=== PATIENT | male | born 1990 | race Caucasian/White ===

== ENCOUNTER 2016-09-30 19:07 | Outpatient (CLI) | payer MEDICARE, MEDICAID | END 2016-09-30 19:08 | disposition EMS.NT | DX: Z03.89 Encounter for observation for other suspected diseases and conditions ruled out (principal) ==

== ENCOUNTER 2016-12-06 23:31 | Emergency (ER) | payer MEDICARE, MEDICAID ==
[2016-12-07 00:19] LABS: BASOPHILS # (AUTO) 0.1 10^3/uL (0.0-0.1); BASOPHILS % (AUTO) 0.7 %; EOSINOPHILS # (AUTO) 0.2 10^3/uL (0.0-0.7); EOSINOPHILS % (AUTO) 2.7 %; HCT - HEMATOCRIT 41.3 % (42.0-52.0); HGB - HEMOGLOBIN 14.4 g/dL (14.0-18.0); LYMPHOCYTES # (AUTO) 3.4 10^3/uL (1.5-3.5); LYMPHOCYTES % (AUTO) 41.1 %; MEAN CORPUSCULAR HGB CONC 34.8 g/dL (32.0-36.0); MEAN CORPUSCULAR VOLUME 83.5 fL (80.0-94.0); MEAN PLATELET VOLUME 6.8 fL (7.4-11.4); MONOCYTES # (AUTO) 0.7 10^3/uL (0.0-1.0); MONOCYTES % (AUTO) 8.2 %; NEUTROPHILS # (AUTO) 3.9 10^3/uL (1.5-6.6); NEUTROPHILS % (AUTO) 47.3 %; RED BLOOD COUNT 4.95 10^6/uL (4.70-6.10); UNCORRECTED WHITE BLOOD COUNT 8.3 x10^3/uL; WHITE BLOOD COUNT 8.3 x10^3/uL (4.8-10.8)
[2016-12-07 00:25] LABS: ALBUMIN/GLOBULIN RATIO 2.3 (1.0-2.2); BILIRUBIN,TOTAL 0.3 mg/dL (0.2-1.0); BUN - BLOOD UREA NITROGEN 12 mg/dL (6-20); CALCIUM 9.2 mg/dL (8.5-10.3); CARBON DIOXIDE - CO2 29 mmol/L (21-32); CHLORIDE 101 mmol/L (101-111); CREATININE 1.1 mg/dL (0.6-1.2); GFR - MDRD 82 (>89); GLUCOSE 85 mg/dL (70-100); LIPASE 28 U/L (22-51); POTASSIUM 3.7 mmol/L (3.5-5.0); SODIUM 138 mmol/L (135-145); TOTAL PROTEIN 6.5 g/dL (6.7-8.2)
--- NOTE | 2016-12-07 00:33 | ED Physician Documentation ---
PD HPI SEIZURE - Stated complaint Stated Complaint: SYNCOPE - Chief complaint Chief Complaint: Neuro - History obtained from History obtained from: Patient, Family - History of Present Illness Timing - onset: Today Witnessed: Witnessed Number of seizures: Lasted minutes (5) Injury during seizure: Fell. No: Head injury, Neck injury, Bit tongue, Shoulder dislocation Pain level max: 0 Pain level now: 0 Associated symptoms: No: Headache, Vision changes, Chest pain, Palpitations, Diaphoresis, Dyspnea, Nausea / vomiting History of seizures: Known seizure disorder Similar symptoms before: Diagnosis (being worked up for seizure vs pseudoseizures.) Recently seen: Not recently seen Review of Systems Constitutional: denies: Fever, Chills Nose: denies: Rhinorrhea / runny nose, Congestion Throat: denies: Sore throat Respiratory: denies: Cough, Hemoptysis GI: denies: Abdominal Pain, Nausea, Vomiting, Diarrhea Skin: denies: Rash Musculoskeletal: denies: Neck pain, Back pain Neurologic: denies: Focal weakness, Numbness, Headache PD PAST MEDICAL HISTORY - Past Medical History Past Medical History: Yes Cardiovascular: None Respiratory: None Neuro: Seizure disorder Endocrine/Autoimmune: None GI: None : None HEENT: None Psych: Bipolar disorder, ADD/ADHD Musculoskeletal: None Derm: None - Past Surgical History Past Surgical History: Yes HEENT: Myringotomy (tubes) - Present Medications Home Medications: Ambulatory Orders Medication Instructions Recorded Confirmed Montelukast [Singulair] 10 mg PO DAILY 07/14/13 12/06/16 Risperidone 1 mg PO DAILY 07/14/13 12/06/16 Guanfacine HCl 1 tab PO DAILY 11/17/15 12/06/16 Pantoprazole [Protonix] 20 mg PO DAILY 11/17/15 12/06/16 Trazodone HCl 100 tab PO DAILY 11/17/15 12/06/16 Albuterol 3 ml IH Q6HR PRN 12/06/15 Fluticasone [Flonase] 2 spray IH Q6HR PRN 12/06/15 Lamotrigine [Lamictal Odt] 200 mg PO BID 12/06/16 12/06/16 - Allergies Allergies/Adverse Reactions: Allergies Allergy/AdvReac Type Severity Reaction Status Date / Time anesthesia AdvReac Nausea Uncoded 12/06/16 23:42 - Social History Does the pt smoke?: Yes Smoking Status: Current every day smoker Does the pt drink ETOH?: Yes Does the pt have substance abuse?: No - Immunizations Immunizations are current?: No Immunizations: No immun - POLST Patient has POLST: No PD ED PE NORMAL - Vitals Vital signs reviewed: Yes - General General: Alert and oriented X 3, No acute distress, Well developed/nourished - HEENT HEENT: Atraumatic, PERRL, Moist mucous membranes - Neck Neck: Supple, no meningeal sign, No bony TTP - Cardiac Cardiac: RRR, Strong equal pulses - Respiratory Respiratory: No respiratory distress, Clear bilaterally - Abdomen Abdomen: Soft, Non tender, Non distended - Back Back: No spinal TTP - Derm Derm: Warm and dry, No rash - Extremities Extremities: No deformity, No tenderness to palpate - Neuro Neuro: Alert and oriented X 3, keno attendant 2-12 intact, No motor deficit, No sensory deficit, Normal speech - Psych Psych: Normal mood, Normal affect Results - Vitals Vitals: Vital Signs - 24 hr 12/06/16 12/07/16 12/07/16 23:38 00:01 00:35 Temperature 36.9 C Heart Rate 61 69 70 Respiratory 20 13 17 Rate Blood Pressure 126/73 126/73 111/61 O2 Saturation 100 100 99 Oxygen O2 Source Room air - Labs Labs: Laboratory Tests 12/06/16 12/06/16 23:55 23:55 WBC 8.3 RBC 4.95 Hgb 14.4 Hct 41.3 L MCV 83.5 MCH 29.0 MCHC 34.8 RDW 13.0 Plt Count 174 MPV 6.8 L Neut # 3.9 Lymph # 3.4 Thayer # 0.7 Eos # 0.2 Baso # 0.1 Absolute Nucleated RBC 0.00 Nucleated RBCs 0.0 Sodium 138 Potassium 3.7 Chloride 101 Carbon Dioxide 29 Anion Gap 8.0 BUN 12 Creatinine 1.1 Estimated GFR (MDRD) 82 L Glucose 85 Calcium 9.2 Total Bilirubin 0.3 AST 18 ALT 18 Alkaline Phosphatase 84 Total Protein 6.5 L Albumin 4.5 Globulin 2.0 L Albumin/Globulin Ratio 2.3 H Lipase 28 Ethyl Alcohol < 5.0 PD MEDICAL DECISION MAKING - ED course Complexity details: reviewed results, re-evaluated patient, considered differential, d/w patient, d/w family ED course: Patient is a 26-year-old male with a known seizure versus pseudoseizure disorder. Being evaluated by his neurologist in [place]. Had an episode tonight that lasted longer than his usual. Now back to baseline. No fevers. No headache. No recent illness. Has had recent medication changes with his neurologist. No acute laboratory findings. Lamictal level was sent, but will not return for several days. I did offer to call his neurologist, patient and his mother declined this at this time. They state they will call them on Thursday. They will return if he worsens. Patient is at his normal baseline currently. Patient and family counseled regarding signs and symptoms for which I believe and urgent re-evaluation would be necessary. Patient with good understanding of and agreement to plan and is comfortable going home at this time This document was made in part using voice recognition software. While efforts are made to proofread this document, sound alike and grammatical errors may occur. Departure - Departure Disposition: 01 Home, Self Care Clinical Impression: Seizure Condition: Good Instructions: ED Seizure Recurrent Follow-Up: Paloma Ace PA-C [Primary Care Provider] - Within 1 week Comments: Return if you worsen. The lamictal level should be back in a few days and your doctor will have access to this. Discharge Date/Time: 12/07/16 00:43
[2016-12-07 00:41] VITALS: BP 111/61
== END 2016-12-07 00:43 | disposition home or self-care (01) ==
LOC: ED 23:31
DX: G40.909 Epilepsy, unspecified, not intractable, without status epilepticus (principal); F17.200 Nicotine dependence, unspecified, uncomplicated
CPT/HCPCS: 36415; 80053; 80175; 83690; 85025; 93005; 93010; 99284; G0480; 80320

== ENCOUNTER 2017-01-03 00:47 | Emergency (ER) | payer MEDICAID, MEDICARE ==
--- NOTE | 2017-01-03 01:21 | ED Physician Documentation ---
History of Present Illness - Stated complaint Stated Complaint: ANXIETY ATTACK - Chief complaint Chief Complaint: General - History obtained from History obtained from: Patient - History of Present Illness Timing: Prior to arrival Pain level now: 0 Improved by: no ameliorating factors Worsened by: no exacerbating factors - Additonal information Additional information: c/o sudden onset rapid palpitations, dyspnea, anxiety. Patient began pacing around his room and gradually the symptoms completely resolved (lasted approximately 20 minutes). He presents to ED asymptomatic. Review of Systems Cardiac: reports: Palpitations. denies: Chest pain / pressure Respiratory: reports: Dyspnea Neurologic: denies: Focal weakness, Numbness, Headache Psychiatric: reports: Anxiety PD PAST MEDICAL HISTORY - Past Medical History Past Medical History: Yes Cardiovascular: None Respiratory: None Neuro: Seizure disorder Endocrine/Autoimmune: None GI: None : None HEENT: None Psych: Bipolar disorder, ADD/ADHD Musculoskeletal: None Derm: None - Past Surgical History Past Surgical History: Yes HEENT: Myringotomy (tubes) - Present Medications Home Medications: Ambulatory Orders Medication Instructions Recorded Confirmed Montelukast [Singulair] 10 mg PO DAILY 07/14/13 12/06/16 Risperidone 1 mg PO DAILY 07/14/13 12/06/16 Guanfacine HCl 1 tab PO DAILY 11/17/15 12/06/16 Pantoprazole [Protonix] 20 mg PO DAILY 11/17/15 12/06/16 Trazodone HCl 100 tab PO DAILY 11/17/15 12/06/16 Albuterol 3 ml IH Q6HR PRN 12/06/15 Fluticasone [Flonase] 2 spray IH Q6HR PRN 12/06/15 Lamotrigine [Lamictal Odt] 200 mg PO BID 12/06/16 12/06/16 LORazepam [Ativan] 0.5 - 1 mg PO Q6H PRN #14 tablet 01/03/17 - Allergies Allergies/Adverse Reactions: Allergies Allergy/AdvReac Type Severity Reaction Status Date / Time anesthesia AdvReac Nausea Uncoded 01/03/17 00:59 - Social History Does the pt smoke?: Yes Smoking Status: Current every day smoker Does the pt drink ETOH?: Yes Does the pt have substance abuse?: No - Immunizations Immunizations are current?: No Immunizations: No immun - POLST Patient has POLST: No PD ED PE NORMAL - Vitals Vital signs reviewed: Yes - General General: Alert and oriented X 3, No acute distress, Well developed/nourished - Cardiac Cardiac: RRR, No murmur, No gallop, No rub - Respiratory Respiratory: No respiratory distress, Clear bilaterally - Neuro Neuro: Alert and oriented X 3, sales consulting director 2-12 intact, No motor deficit, No sensory deficit, Normal speech - Psych Psych: Normal mood, Normal affect Results - Vitals Vitals: Vital Signs - 24 hr 01/03/17 01/03/17 00:56 01:40 Temperature 36.5 C Heart Rate 95 84 Respiratory 17 17 Rate Blood Pressure 141/87 H 127/76 O2 Saturation 95 98 Oxygen O2 Source Room air PD MEDICAL DECISION MAKING - ED course Complexity details: considered differential, d/w patient, d/w family Departure - Departure Disposition: 01 Home, Self Care Clinical Impression: Palpitations Condition: Good Instructions: ED Palpitations Follow-Up: Paloma Ace PA-C [Primary Care Provider] - Within 1 week Prescriptions: LORazepam [Ativan] 0.5 - 1 mg PO Q6H PRN #14 tablet PRN Reason: Anxiety Discharge Date/Time: 01/03/17 01:40
[2017-01-03 01:53] VITALS: BP 127/76
== END 2017-01-03 01:40 | disposition home or self-care (01) ==
LOC: ED 00:47
DX: F41.0 Panic disorder [episodic paroxysmal anxiety] (principal); R00.2 Palpitations; F31.9 Bipolar disorder, unspecified; F17.200 Nicotine dependence, unspecified, uncomplicated
CPT/HCPCS: 99283

== ENCOUNTER 2017-07-10 11:29 | Emergency (ER) | payer MEDICAID ==
[2017-07-10] MEDS ORDERED: BUFFERED LIDOCAINE 10 ML SYRINGE SUBQ STA (13:32)
--- NOTE | 2017-07-10 13:33 | ED Physician Documentation ---
PD HPI UPPER EXT INJURY - Stated complaint Stated Complaint: RIGHT THUMB LAC - Chief complaint Chief Complaint: Laceration - History obtained from History obtained from: Patient - History of Present Illness Location: Other (Left-handed gentleman who is up-to-date on tetanus cut his right thumb on a knife at home just prior to arrival.) Review of Systems Constitutional: reports: Reviewed and negative Cardiac: reports: Reviewed and negative Respiratory: reports: Reviewed and negative PD PAST MEDICAL HISTORY - Past Medical History Past Medical History: Yes Cardiovascular: None Respiratory: None Neuro: Seizure disorder Endocrine/Autoimmune: None GI: None : None HEENT: None Psych: Bipolar disorder, ADD/ADHD Musculoskeletal: None Derm: None - Past Surgical History Past Surgical History: Yes HEENT: Myringotomy (tubes) - Present Medications Home Medications: Ambulatory Orders Medication Instructions Recorded Confirmed Montelukast [Singulair] 10 mg PO DAILY 07/14/13 12/06/16 risperiDONE [Risperidone] 1 mg PO DAILY 07/14/13 12/06/16 Guanfacine HCl 1 tab PO DAILY 11/17/15 12/06/16 Pantoprazole [Protonix] 20 mg PO DAILY 11/17/15 12/06/16 Trazodone HCl 100 tab PO DAILY 11/17/15 12/06/16 Albuterol 3 ml IH Q6HR PRN 12/06/15 Fluticasone [Flonase] 2 spray IH Q6HR PRN 12/06/15 lamoTRIgine [Lamictal Odt] 200 mg PO BID 12/06/16 12/06/16 LORazepam [Ativan] 0.5 - 1 mg PO Q6H PRN #14 tablet 01/03/17 - Allergies Allergies/Adverse Reactions: Allergies Allergy/AdvReac Type Severity Reaction Status Date / Time anesthesia AdvReac Nausea Uncoded 01/03/17 00:59 - Social History Does the pt smoke?: Yes Smoking Status: Current every day smoker Does the pt drink ETOH?: Yes Does the pt have substance abuse?: No - Immunizations Immunizations are current?: Yes Immunizations: Other immun current - POLST Patient has POLST: No PD ED PE NORMAL - Vitals Vital signs reviewed: Yes - General General: Alert and oriented X 3, No acute distress - Extremities Extremities: Other (On the right thumb, ulnar side, distal to the interphalangeal joint there is a 1 cm laceration that abuts but does not involve the nail/nail plate. He does have mildly diminished sensation right at the tip distal to that but no difficulty with flexion or extension.) - Neuro Neuro: Alert and oriented X 3, Normal speech - Psych Psych: Normal mood, Normal affect Results - Vitals Vitals: Vital Signs - 24 hr 07/10/17 07/10/17 12:01 14:23 Temperature 37.0 C 36.7 C Heart Rate 74 73 Respiratory 16 16 Rate Blood Pressure 123/83 H 117/80 O2 Saturation 98 96 Oxygen O2 Source Room air Procedures - Laceration (location) R thumb Length in cm: 1 Wound type: Linear Anesthesia: Lidocaine 1%, With bicarb Wound Preparation: Irrigated copiously NS Skin layer closure: Nylon, Size #-0 - enter number (4-0), Sutures - enter # (3) Other: Tetanus UTD Complexity: Simple Departure - Departure Disposition: 01 Home, Self Care Clinical Impression: Laceration of right thumb Qualifiers: Encounter type: initial encounter Damage to nail status: without damage Foreign body presence: without foreign body Qualified Code(s): S61.011A - Laceration without foreign body of right thumb without damage to nail, initial encounter Condition: Good Record reviewed to determine appropriate education?: Yes Instructions: ED Laceration Hand Comments: Come back for any signs of infection which would include: Redness, swelling, drainage, increased pain, or fevers. Follow-up with your physician in 14 days for suture removal. Your blood pressure was elevated today on check into the emergency department. This does not mean that you have hypertension, it is a common phenomenon to come to the emergency department and have elevated blood pressure. I recommend that you see your primary care physician within the week to have it rechecked when you are feeling better. Forms: Activity restrictions Discharge Date/Time: 07/10/17 14:23
[2017-07-10 14:26] VITALS: BP 117/80
== END 2017-07-10 14:23 | disposition home or self-care (01) ==
LOC: ED 11:29
DX: S61.011A Laceration without foreign body of right thumb without damage to nail, initial encounter (principal); W26.0XXA Contact with knife, initial encounter; Y92.019 Unspecified place in single-family (private) house as the place of occurrence of the external cause; F17.200 Nicotine dependence, unspecified, uncomplicated; R03.0 Elevated blood-pressure reading, without diagnosis of hypertension
CPT/HCPCS: 12001; 99282; 99283

== ENCOUNTER 2017-12-16 07:46 | Outpatient (CLI) | payer MEDICAID ==
[2017-12-16 13:46] LABS: CHOL/HDL RATIO 3.1 (<5.0); CHOLESTEROL 176 mg/dL; HDL CHOLESTEROL 56 mg/dL; LDL CHOLESTEROL,CALCULATED 107 mg/dL; LDL/HDL RATIO 1.9 (<3.6); VLDL CHOLESTEROL 13 mg/dL
[2017-12-16 13:59] LABS: HB2 TOTAL 16.1 g/dL; HEMOGLOBIN A1C 0.54 g/dL; HEMOGLOBIN A1C % 5.2 % (4.6-6.2)
== END 2017-12-16 07:47 ==
LOC: LAB.N 07:46
PROVIDERS: ATTEND Registered Nurse
DX: F31.9 Bipolar disorder, unspecified (principal)
CPT/HCPCS: 36415; 80061; 83036; 83721; 84146

== ENCOUNTER 2018-02-17 18:52 | Emergency (ER) | payer MEDICAID ==
[2018-02-17] MEDS ORDERED: HYDROcod/ACETAM 5/325 MG TABLET PO STA (20:56)
--- NOTE | 2018-02-17 20:58 | ED Physician Documentation ---
PD HPI LOWER EXT INJURY - Stated complaint Stated Complaint: ANKLE INJURY - Chief complaint Chief Complaint: Ext Problem - History obtained from History obtained from: Patient, Family - History of Present Illness PD HPI LOW EXT INJURY LOCATION: Right, Ankle (He forcefully plantarflexed his right foot on a wobbly step 5 days ago. He has severe pain over the medial ankle on the top of the foot. He says he was seen at another ER and diagnosed with a fracture but just put in an Melvni wrap and told that he could weight-bear without pain medications.) Review of Systems Constitutional: denies: Fever, Chills Cardiac: reports: Reviewed and negative Respiratory: reports: Reviewed and negative PD PAST MEDICAL HISTORY - Past Medical History Past Medical History: No Cardiovascular: Murmur Respiratory: None Neuro: None Endocrine/Autoimmune: None GI: None : None HEENT: None Psych: Bipolar disorder, ADD/ADHD Musculoskeletal: None Derm: None - Past Surgical History Past Surgical History: No HEENT: Myringotomy (tubes) - Present Medications Home Medications: Ambulatory Orders Medication Instructions Recorded Confirmed Montelukast [Singulair] 10 mg PO DAILY 07/14/13 12/06/16 risperiDONE [Risperidone] 1 mg PO DAILY 07/14/13 12/06/16 Guanfacine HCl 1 tab PO DAILY 11/17/15 12/06/16 Pantoprazole [Protonix] 20 mg PO DAILY 11/17/15 12/06/16 Trazodone HCl 100 tab PO DAILY 11/17/15 12/06/16 Albuterol 3 ml IH Q6HR PRN 12/06/15 Fluticasone [Flonase] 2 spray IH Q6HR PRN 12/06/15 lamoTRIgine [Lamictal Odt] 200 mg PO BID 12/06/16 12/06/16 LORazepam [Ativan] 0.5 - 1 mg PO Q6H PRN #14 tablet 01/03/17 Meloxicam [Mobic] 7.5 mg PO BIDWM PRN #15 tablet 02/17/18 - Allergies Allergies/Adverse Reactions: Allergies Allergy/AdvReac Type Severity Reaction Status Date / Time anesthesia AdvReac Nausea Uncoded 02/17/18 19:19 - Social History Does the pt smoke?: Yes Smoking Status: Current every day smoker Does the pt drink ETOH?: No Does the pt have substance abuse?: Yes Substance Use and Type: Marijuana - Immunizations Immunizations are current?: No Immunizations: Other immun current - POLST Patient has POLST: No PD ED PE NORMAL - Vitals Vital signs reviewed: Yes - General General: Alert and oriented X 3, No acute distress - Extremities Extremities: No calf tenderness / cord, Other (The ankle is tender over the medial malleolus but not the proximal fibular or lateral malleolus. He is also tender over the dorsal forefoot. There is some bruising in the dorsal forefoot. No deformity. He says he is numb all the way up to the knee, I discussed with him that does not make any anatomic sense. He says he is just ignoring the pain and that made him numb.) - Neuro Neuro: Alert and oriented X 3, Normal speech Results - Vitals Vitals: Vital Signs - 24 hr 02/17/18 19:16 Temperature 36.5 C Heart Rate 68 Respiratory 16 Rate Blood Pressure 125/75 O2 Saturation 96 Oxygen O2 Source Room air - Rads (name of study) X-rays of the right foot and ankle Radiology: EMP read contemporaneously (normal) PD MEDICAL DECISION MAKING - Sepsis Event Vital Signs: Vital Signs - 24 hr 02/17/18 19:16 Temperature 36.5 C Heart Rate 68 Respiratory 16 Rate Blood Pressure 125/75 O2 Saturation 96 Oxygen O2 Source Room air Departure - Departure Disposition: 01 Home, Self Care Clinical Impression: Ankle sprain Qualifiers: Encounter type: initial encounter Involved ligament of ankle: deltoid ligament Laterality: right Qualified Code(s): S93.421A - Sprain of deltoid ligament of right ankle, initial encounter Condition: Good Record reviewed to determine appropriate education?: Yes Instructions: ED Sprain Ankle W X Ray Prescriptions: Meloxicam [Mobic] 7.5 mg PO BIDWM PRN #15 tablet PRN Reason: Pain Comments: Recheck with your doctor in 1 week.
--- NOTE | 2018-02-17 21:54 | XRAY Report ---
Procedure Date: 02/17/2018 Accession Number: [id number] / [id number] Procedure: XR - Foot 3 View RT CPT Code: FULL RESULT: EXAM: RIGHT FOOT RADIOGRAPHY. EXAM DATE: 02/17/2018 09:20 PM. CLINICAL HISTORY: Foot ankle injury. COMPARISON: X-ray foot complete min 3 views 04/18/2008. TECHNIQUE: 3 views. FINDINGS: Bones: Normal. No fractures or bone lesions. Joints: Normal. No subluxations. Soft Tissues: Normal. No soft tissue swelling. IMPRESSION: Normal foot radiography. [facility]
--- NOTE | 2018-02-17 21:55 | XRAY Report ---
Procedure Date: 02/17/2018 Accession Number: [id number] / [id number] Procedure: XR - Ankle 3 View RT CPT Code: FULL RESULT: EXAM: RIGHT ANKLE RADIOGRAPHY EXAM DATE: 02/17/2018 09:20 PM. CLINICAL HISTORY: Fall 4 days ago. Lateral ankle pain. COMPARISON: X-ray ankle complete min 3 view 04/18/2008. Foot 3 view right 02/17/2018. TECHNIQUE: 3 views. FINDINGS: Bones: Normal. No fractures or bone lesions. Joints: Normal. No effusion. No subluxations. The ankle mortise is normally aligned. Soft Tissues: Normal. No soft tissue swelling. IMPRESSION: Normal ankle radiography. [facility]
[2018-02-17] MEDS ORDERED: HYDROcod/ACET 5/325 Prepack 4 PO STA (22:00)
[2018-02-17 22:12] VITALS: BP 135/79
== END 2018-02-17 22:13 | disposition home or self-care (01) ==
LOC: ED 18:52
DX: S93.421A Sprain of deltoid ligament of right ankle, initial encounter (principal); F17.200 Nicotine dependence, unspecified, uncomplicated
CPT/HCPCS: 73610; 73630; 99283; A9270

== ENCOUNTER 2018-04-10 09:52 | Outpatient (CLI) | payer MEDICAID ==
--- NOTE | 2018-04-11 04:21 | XRAY Report ---
Reason: FOOT JOINT PAIN,RIGHT Procedure Date: 04/10/2018 Accession Number: [id number] / [id number] Procedure: XR - Foot 3 View RT CPT Code: FULL RESULT: EXAMS: RIGHT FOOT AND ANKLE RADIOGRAPHY EXAM DATE: 04/10/2018 10:14 AM. CLINICAL HISTORY: Right foot and ankle pain. COMPARISON: FOOT 3 VIEW RT 02/17/2018 9:19 PM ANKLE 3 VIEW RT 04/10/2018 10:02 AM. TECHNIQUE: 3 views each foot and ankle. FINDINGS: Bones: Normal. No fractures or bone lesions in the foot or ankle. Joints: Normal. No effusions. No subluxations in the foot or ankle. The ankle mortise is normally aligned. Soft Tissues: Normal. No soft tissue swelling. IMPRESSION: Stable negative right foot and ankle radiography. RADIA
--- NOTE | 2018-04-11 04:21 | XRAY Report ---
Reason: ANKLE JOINT PAIN,RIGHT Procedure Date: 04/10/2018 Accession Number: [id number] / [id number] Procedure: XR - Ankle 3 View RT CPT Code: FULL RESULT: EXAMS: RIGHT FOOT AND ANKLE RADIOGRAPHY EXAM DATE: 04/10/2018 10:14 AM. CLINICAL HISTORY: Right foot and ankle pain. COMPARISON: FOOT 3 VIEW RT 02/17/2018 9:19 PM ANKLE 3 VIEW RT 04/10/2018 10:02 AM. TECHNIQUE: 3 views each foot and ankle. FINDINGS: Bones: Normal. No fractures or bone lesions in the foot or ankle. Joints: Normal. No effusions. No subluxations in the foot or ankle. The ankle mortise is normally aligned. Soft Tissues: Normal. No soft tissue swelling. IMPRESSION: Stable negative right foot and ankle radiography. RADIA
== END 2018-04-10 09:53 | disposition home or self-care (01) ==
LOC: DI 09:52
PROVIDERS: ATTEND Nurse Practitioner Gerontology
DX: M25.571 Pain in right ankle and joints of right foot (principal); M79.671 Pain in right foot

== ENCOUNTER 2018-05-31 08:00 | Outpatient (CLI) | payer MEDICAID ==
[2018-05-31 15:08] LABS: BASOPHILS # (AUTO) 0.1 10^3/uL (0.0-0.1); BASOPHILS % (AUTO) 0.6 %; EOSINOPHILS # (AUTO) 0.2 10^3/uL (0.0-0.7); EOSINOPHILS % (AUTO) 2.1 %; HGB - HEMOGLOBIN 15.1 g/dL (14.0-18.0); LYMPHOCYTES # (AUTO) 2.2 10^3/uL (1.5-3.5); LYMPHOCYTES % (AUTO) 27.8 %; MEAN CORPUSCULAR HEMOGLOBIN 29.7 pg (27.0-31.0); MEAN CORPUSCULAR HGB CONC 35.5 g/dL (32.0-36.0); MEAN CORPUSCULAR VOLUME 83.7 fL (80.0-94.0); MEAN PLATELET VOLUME 6.8 fL (7.4-11.4); MONOCYTES # (AUTO) 0.7 10^3/uL (0.0-1.0); MONOCYTES % (AUTO) 8.2 %; NEUTROPHILS # (AUTO) 4.9 10^3/uL (1.5-6.6); NEUTROPHILS % (AUTO) 61.3 %; PLT - PLATELET COUNT 209 10^3/uL (130-450); RED BLOOD COUNT 5.08 10^6/uL (4.70-6.10); RED CELL DISTRIBUTION WIDTH 12.3 % (12.0-15.0)
[2018-05-31 15:33] LABS: ALBUMIN 4.6 g/dL (3.2-5.5); ALBUMIN/GLOBULIN RATIO 1.8 (1.0-2.2); ALKALINE PHOSPHATASE 106 IU/L (42-121); ALT ALANINE AMINOTRANSFERASE 14 IU/L (10-60); AST ASPARTATE AMINOTRANSFERASE 15 IU/L (10-42); BILIRUBIN,TOTAL 0.4 mg/dL (0.2-1.0); BUN - BLOOD UREA NITROGEN 14 mg/dL (6-20); CALCIUM 9.4 mg/dL (8.5-10.3); CARBON DIOXIDE - CO2 29 mmol/L (21-32); CHLORIDE 100 mmol/L (101-111); CHOL/HDL RATIO 4.4 (<5.0); CHOLESTEROL 205 mg/dL; CREATININE 1.1 mg/dL (0.6-1.2); GFR - MDRD 81 (>89); GLUCOSE 104 mg/dL (70-100); HDL CHOLESTEROL 47 mg/dL; LDL CHOLESTEROL,CALCULATED 148 mg/dL; LDL/HDL RATIO 3.1 (<3.6); SODIUM 136 mmol/L (135-145); TOTAL PROTEIN 7.1 g/dL (6.7-8.2); VLDL CHOLESTEROL 10 mg/dL
== END 2018-05-31 08:01 | disposition home or self-care (01) ==
LOC: LAB.N 08:00
PROVIDERS: ATTEND Nurse Practitioner Gerontology
DX: Z79.899 Other long term (current) drug therapy (principal)
CPT/HCPCS: 36415; 80053; 80061; 83721; 84443; 85025

== ENCOUNTER 2018-08-05 10:30 | Emergency (ER) | payer MEDICAID ==
[2018-08-05] MEDS ORDERED: DEXAMETHASONE 10 MG/ML VIAL PO STA (11:34)
--- NOTE | 2018-08-05 11:37 | ED Physician Documentation ---
History of Present Illness - Stated complaint Stated Complaint: CHEST PX/DIZZY/VOMITING - Chief complaint Chief Complaint: General - History obtained from History obtained from: Patient - History of Present Illness Timing: Last night - Additonal information Additional information: 27-year-old male was well yesterday and last night he developed fever after going to bed early and he is developed muscle aches and pains he is got a slight cough and nasal congestion. He is developed some chest pain associated with this. Review of Systems Constitutional: reports: Fever, Chills, Myalgias, Fatigue Eyes: denies: Decreased vision Ears: denies: Ear pain Nose: reports: Rhinorrhea / runny nose, Congestion Throat: denies: Sore throat Cardiac: reports: Chest pain / pressure. denies: Palpitations Respiratory: reports: Cough. denies: Dyspnea GI: denies: Abdominal Pain, Nausea, Vomiting : denies: Dysuria, Frequency Skin: denies: Rash Musculoskeletal: denies: Neck pain, Back pain, Extremity pain Neurologic: denies: Generalized weakness, Focal weakness, Numbness PD PAST MEDICAL HISTORY - Past Medical History Past Medical History: Yes Cardiovascular: Murmur Respiratory: None Neuro: None Endocrine/Autoimmune: None GI: None : None HEENT: None Psych: Bipolar disorder, ADD/ADHD Musculoskeletal: None Derm: None - Past Surgical History Past Surgical History: Yes HEENT: Myringotomy (tubes) - Present Medications Home Medications: Ambulatory Orders Medication Instructions Recorded Confirmed Montelukast [Singulair] 10 mg PO DAILY 07/14/13 12/06/16 risperiDONE [Risperidone] 1 mg PO BID 07/14/13 12/06/16 Guanfacine HCl 2 tab PO DAILY 11/17/15 12/06/16 Fluticasone [Flonase] 2 spray IH Q6HR PRN 12/06/15 lamoTRIgine [Lamictal Odt] 200 mg PO BID 12/06/16 12/06/16 Oseltamivir [Tamiflu] 75 mg PO BID #10 capsule 08/05/18 Prazosin [Minipress] 1 mg PO QPM 08/05/18 08/05/18 Propranolol [Inderal] 40 mg PO BID 08/05/18 08/05/18 raNITIdine [Zantac] 150 mg PO BID 08/05/18 08/05/18 - Allergies Allergies/Adverse Reactions: Allergies Allergy/AdvReac Type Severity Reaction Status Date / Time dust mites Allergy Unknown Uncoded 08/05/18 10:52 anesthesia AdvReac Nausea Uncoded 08/05/18 10:52 - Social History Does the pt smoke?: Yes Smoking Status: Current every day smoker Does the pt drink ETOH?: No Does the pt have substance abuse?: No - Immunizations Immunizations are current?: No Immunizations: Other immun current - POLST Patient has POLST: No PD ED PE NORMAL - Vitals Vital signs reviewed: Yes (febrile ) - General General: Alert and oriented X 3, No acute distress, Well developed/nourished - HEENT HEENT: Atraumatic, PERRL, EOMI, Ears normal, Moist mucous membranes - Neck Neck: Supple, no meningeal sign, No bony TTP - Cardiac Cardiac: RRR, No murmur - Respiratory Respiratory: No respiratory distress, Clear bilaterally - Abdomen Abdomen: Soft, Non tender - Back Back: No CVA TTP, No spinal TTP - Derm Derm: Normal color, Warm and dry, No rash - Extremities Extremities: No deformity, No edema - Neuro Neuro: Alert and oriented X 3, ham facer 2-12 intact, No motor deficit, No sensory deficit, Normal speech Eye Opening: Spontaneous Motor: Obeys Commands Verbal: Oriented GCS Score: 15 - Psych Psych: Normal mood, Normal affect Results - Vitals Vitals: Vital Signs - 24 hr 08/05/18 08/05/18 10:34 11:39 Temperature 38.2 C H Heart Rate 96 102 H Respiratory 20 18 Rate Blood Pressure 120/60 125/76 O2 Saturation 98 99 Oxygen O2 Source Room air - EKG (time done) 1035 Rate: Rate (enter#) (96) Rhythm: NSR Compare to prior EKG: Changed from prior EKG (SPT 12-06-2016 rate has increased) Computer interpretation: Agree with computer - Labs Labs: Laboratory Tests 08/05/18 10:45 Influenza A (Rapid) POSITIVE H Influenza B (Rapid) Negative Procedures - IVC sono (time) 1130 Bedside IVC sono: IVC measures (cm) (2.15), Euvolemia PD MEDICAL DECISION MAKING - ED course Complexity details: reviewed results, re-evaluated patient, considered differential, d/w patient, d/w family ED course: 27-year-old male with acute onset of febrile illness has influenza on antigen testing and he is given a dose of dexamethasone 10 mg orally and we will put him on some Tamiflu. Departure - Departure Disposition: 01 Home, Self Care Clinical Impression: Influenza A Condition: Stable Instructions: ED Flu, Medication: Tamiflu (Oseltamivir) Follow-Up: Emma Landis ARNP [Primary Care Provider] - Prescriptions: Oseltamivir [Tamiflu] 75 mg PO BID #10 capsule Discharge Date/Time: 08/05/18 11:42
[2018-08-05 11:40] VITALS: BP 125/76
== END 2018-08-05 11:42 | disposition home or self-care (01) ==
LOC: ED 10:30
DX: J10.1 Influenza due to other identified influenza virus with other respiratory manifestations (principal); F17.200 Nicotine dependence, unspecified, uncomplicated
CPT/HCPCS: 87275; 87276; 99283

== ENCOUNTER 2018-11-18 19:44 | Emergency (ER) | payer MEDICAID ==
[2018-11-18] MEDS ORDERED: BUFFERED LIDOCAINE 10 ML SYRINGE SUBQ STA (20:33)
--- NOTE | 2018-11-18 20:34 | ED Physician Documentation ---
PD HPI UPPER EXT INJURY - Stated complaint Stated Complaint: FINGER LAC - Chief complaint Chief Complaint: Laceration - History obtained from History obtained from: Patient - History of Present Illness Location: Right (He is up-to-date on tetanus, he was sharpening a knife earlier today about 3:30 PM and cut his right middle finger. No other injuries.) Review of Systems Constitutional: reports: Reviewed and negative Nose: reports: Reviewed and negative Throat: reports: Reviewed and negative PD PAST MEDICAL HISTORY - Past Medical History Cardiovascular: Murmur Respiratory: None Neuro: None Endocrine/Autoimmune: None GI: None : None HEENT: None Psych: Bipolar disorder, ADD/ADHD Musculoskeletal: None Derm: None - Past Surgical History Past Surgical History: Yes HEENT: Myringotomy (tubes) - Present Medications Home Medications: Ambulatory Orders Medication Instructions Recorded Confirmed Montelukast [Singulair] 10 mg PO DAILY 07/14/13 12/06/16 risperiDONE [Risperidone] 1 mg PO BID 07/14/13 12/06/16 Guanfacine HCl 2 tab PO DAILY 11/17/15 12/06/16 Fluticasone [Flonase] 2 spray IH Q6HR PRN 12/06/15 lamoTRIgine [Lamictal Odt] 200 mg PO BID 12/06/16 12/06/16 Oseltamivir [Tamiflu] 75 mg PO BID #10 capsule 08/05/18 Prazosin [Minipress] 1 mg PO QPM 08/05/18 08/05/18 Propranolol [Inderal] 40 mg PO BID 08/05/18 08/05/18 raNITIdine [Zantac] 150 mg PO BID 08/05/18 08/05/18 - Allergies Allergies/Adverse Reactions: Allergies Allergy/AdvReac Type Severity Reaction Status Date / Time dust mites Allergy Unknown Uncoded 11/18/18 19:51 anesthesia AdvReac Nausea Uncoded 11/18/18 19:51 - Social History Does the pt smoke?: Yes Smoking Status: Current every day smoker Does the pt drink ETOH?: No Does the pt have substance abuse?: No - Immunizations Immunizations are current?: No Immunizations: Other immun current - POLST Patient has POLST: No PD ED PE NORMAL - Vitals Vital signs reviewed: Yes - General General: Alert and oriented X 3, No acute distress - Extremities Extremities: Other (On the dorsal surface of the right middle finger at the level of the DIP there is an oblique laceration on the radial side with intact neurovascular function distal to this.) - Neuro Neuro: Alert and oriented X 3, Normal speech Results - Vitals Vitals: Vital Signs - 24 hr 11/18/18 19:45 Temperature 36.0 C L Heart Rate 68 Respiratory 16 Rate Blood Pressure 130/78 O2 Saturation 98 Oxygen O2 Source Room air Procedures - Laceration (location) R 3rd finger Length in cm: 1 Wound type: Linear, Superficial Neurovascular status: Sensory intact, Motor intact, Vascular intact Anesthesia: Lidocaine 1%, With bicarb Wound Preparation: Irrigated copiously NS Skin layer closure: Nylon, Interrupted, Size #-0 - enter number (5-0), Sutures - enter # (3) Other: Tetanus UTD Complexity: Simple Departure - Departure Disposition: 01 Home, Self Care Clinical Impression: Laceration of right middle finger Qualifiers: Encounter type: initial encounter Damage to nail status: without damage Foreign body presence: without foreign body Qualified Code(s): S61.212A - Laceration without foreign body of right middle finger without damage to nail, initial encounter Condition: Good Record reviewed to determine appropriate education?: Yes Instructions: ED Laceration Hand Comments: Come back for any signs of infection which would include: Redness, swelling, drainage, increased pain, or fevers. You can wash it soap and water. Keep it covered and moist with bacitracin ointment which is available over the counter; avoid neosporin. Follow-up with your physician in 10-14 days for suture removal.
[2018-11-18 20:55] VITALS: BP 127/77
== END 2018-11-18 20:59 | disposition home or self-care (01) ==
LOC: ED 19:44
DX: S61.212A Laceration without foreign body of right middle finger without damage to nail, initial encounter (principal); W26.0XXA Contact with knife, initial encounter; Y93.89 Activity, other specified; F17.200 Nicotine dependence, unspecified, uncomplicated
CPT/HCPCS: 12001; 99282; 99283

== ENCOUNTER 2019-04-18 08:48 | Outpatient (CLI) | payer MEDICAID ==
[2019-04-18 09:12] LABS: BASOPHILS % (AUTO) 0.7 %; EOSINOPHILS # (AUTO) 0.3 10^3/uL (0.0-0.7); EOSINOPHILS % (AUTO) 4.3 %; HGB - HEMOGLOBIN 14.9 g/dL (14.0-18.0); LYMPHOCYTES # (AUTO) 2.1 10^3/uL (1.5-3.5); LYMPHOCYTES % (AUTO) 35.2 %; MEAN CORPUSCULAR HEMOGLOBIN 29.2 pg (27.0-31.0); MEAN CORPUSCULAR HGB CONC 33.4 g/dL (32.0-36.0); MEAN CORPUSCULAR VOLUME 87.3 fL (80.0-94.0); MEAN PLATELET VOLUME 8.3 fL (7.4-11.4); MONOCYTES # (AUTO) 0.5 10^3/uL (0.0-1.0); MONOCYTES % (AUTO) 8.3 %; NEUTROPHILS # (AUTO) 3.1 10^3/uL (1.5-6.6); NEUTROPHILS % (AUTO) 51.2 %; PLT - PLATELET COUNT 158 10^3/uL (130-450); RED BLOOD COUNT 5.11 10^6/uL (4.70-6.10); RED CELL DISTRIBUTION WIDTH 12.4 % (12.0-15.0)
[2019-04-18 09:30] LABS: ALBUMIN 4.7 g/dL (3.2-5.5); BILIRUBIN,TOTAL 0.5 mg/dL (0.2-1.0); CALCIUM 9.4 mg/dL (8.5-10.3); CREATININE 1.1 mg/dL (0.6-1.2); TOTAL PROTEIN 7.1 g/dL (6.7-8.2)
== END 2019-04-18 08:49 | disposition home or self-care (01) ==
LOC: LAB 08:48
PROVIDERS: ATTEND Psychiatry & Neurology Neurology
DX: E55.9 Vitamin D deficiency, unspecified (principal); G40.309 Generalized idiopathic epilepsy and epileptic syndromes, not intractable, without status epilepticus; Z51.81 Encounter for therapeutic drug level monitoring
CPT/HCPCS: 36415; 80053; 80175; 81599; 82306; 85025

== ENCOUNTER 2019-04-22 16:02 | Emergency (ER) | payer MEDICAID ==
[2019-04-22 16:08] VITALS: BP 123/81
[2019-04-22] MEDS ORDERED: ONDANSETRON ODT 4 MG TABLET TL STA (16:18)
--- NOTE | 2019-04-22 16:24 | ED Physician Documentation ---
History of Present Illness - Stated complaint Stated Complaint: VOMITING/DIZZINESS - Chief complaint Chief Complaint: Abd Pain - History obtained from History obtained from: Patient - History of Present Illness Timing: Today Pain level max: 0 Pain level now: 0 - Additonal information Additional information: Patient states vomiting today, approximately 7 to 8 times. Nonbloody. Worse with eating and drinking. Nothing makes it better. He is able to tolerate Sprite on the way to the emergency department. No diarrhea. No fever. No recent travel. Ate tamales last night. Had Elo7 for breakfast this morning. Review of Systems Constitutional: denies: Fever, Chills Cardiac: denies: Chest pain / pressure Respiratory: denies: Cough GI: reports: Nausea, Vomiting. denies: Abdominal Pain, Diarrhea, Hematemesis, Bloody / black stool : denies: Dysuria, Frequency, Hesitancy Skin: denies: Rash Musculoskeletal: denies: Neck pain, Back pain Neurologic: denies: Headache PD PAST MEDICAL HISTORY - Past Medical History Past Medical History: Yes Cardiovascular: Murmur Respiratory: None Neuro: None Endocrine/Autoimmune: None GI: None : None HEENT: None Psych: Bipolar disorder, ADD/ADHD Musculoskeletal: None Derm: None - Past Surgical History Past Surgical History: Yes HEENT: Myringotomy (tubes) - Present Medications Home Medications: Ambulatory Orders Medication Instructions Recorded Confirmed Montelukast [Singulair] 10 mg PO DAILY 07/14/13 12/06/16 risperiDONE [Risperidone] 1 mg PO BID 07/14/13 12/06/16 Guanfacine HCl 2 tab PO DAILY 11/17/15 12/06/16 Fluticasone [Flonase] 2 spray IH Q6HR PRN 12/06/15 lamoTRIgine [Lamictal Odt] 200 mg PO BID 12/06/16 12/06/16 Oseltamivir [Tamiflu] 75 mg PO BID #10 capsule 08/05/18 Prazosin [Minipress] 1 mg PO QPM 08/05/18 08/05/18 Propranolol [Inderal] 40 mg PO BID 08/05/18 08/05/18 raNITIdine [Zantac] 150 mg PO BID 08/05/18 08/05/18 Ondansetron Odt [Zofran] 4 mg TL Q6H PRN #10 tablet 04/22/19 - Allergies Allergies/Adverse Reactions: Allergies Allergy/AdvReac Type Severity Reaction Status Date / Time dust mites Allergy Unknown Uncoded 04/22/19 16:05 anesthesia AdvReac Nausea Uncoded 04/22/19 16:05 - Social History Does the pt smoke?: Yes Smoking Status: Current every day smoker Does the pt drink ETOH?: No Does the pt have substance abuse?: No - Immunizations Immunizations are current?: No Immunizations: Other immun current - POLST Patient has POLST: No PD ED PE NORMAL - Vitals Vital signs reviewed: Yes - General General: Alert and oriented X 3, No acute distress, Well developed/nourished - HEENT HEENT: PERRL, Moist mucous membranes - Neck Neck: Supple, no meningeal sign - Cardiac Cardiac: RRR, Strong equal pulses - Respiratory Respiratory: No respiratory distress, Clear bilaterally - Abdomen Abdomen: Soft, Non tender, Non distended - Back Back: No spinal TTP - Derm Derm: Warm and dry - Extremities Extremities: No edema - Neuro Neuro: Alert and oriented X 3 - Psych Psych: Normal mood, Normal affect Results - Vitals Vitals: Vital Signs - 24 hr 04/22/19 16:05 Temperature 37.1 C Heart Rate 64 Respiratory 16 Rate Blood Pressure 123/81 H O2 Saturation 99 Oxygen O2 Source Room air PD MEDICAL DECISION MAKING - ED course Complexity details: re-evaluated patient, considered differential, d/w patient ED course: Patient with vomiting today. Asymptomatic here. Nausea resolved with Zofran. Tolerating p.o. without difficulty. Possible early viral gastroenteritis? He declines any blood work or IV fluid. Will prescribe Zofran for home and have him follow-up with his doctor as needed. Patient counseled regarding signs and symptoms for which I believe and urgent re-evaluation would be necessary. Patient with good understanding of and agreement to plan and is comfortable going home at this time This document was made in part using voice recognition software. While efforts are made to proofread this document, sound alike and grammatical errors may occur. Abdomen is soft, nontender nondistended. Departure - Departure Disposition: Home, Self Care Clinical Impression: Vomiting Qualifiers: Vomiting type: unspecified Vomiting Intractability: non-intractable Nausea presence: without nausea Qualified Code(s): R11.11 - Vomiting without nausea Condition: Good Instructions: ED Nausea Vomiting Follow-Up: ALEXA PERALTA MD [Primary Care Provider] - As Needed Prescriptions: Ondansetron Odt [Zofran] 4 mg TL Q6H PRN #10 tablet PRN Reason: Nausea / Vomiting Comments: Go home and rest. Drink plenty of fluids. You may develop diarrhea over the next day or 2. Return if you worsen. Follow-up with your doctor as needed
== END 2019-04-22 16:51 | disposition home or self-care (01) ==
LOC: ED 16:02
DX: R11.2 Nausea with vomiting, unspecified (principal); F17.200 Nicotine dependence, unspecified, uncomplicated
CPT/HCPCS: 99283; Q0162

== ENCOUNTER 2019-09-20 15:30 | Outpatient (CLI) | payer MEDICAID ==
--- NOTE | 2019-09-20 16:58 | XRAY Report ---
Reason: THORACIC BACK PAIN Procedure Date: 09/20/2019 Accession Number: [id number] / [id number] Procedure: XRN - Thoracic Spine 3 View CPT Code: Final Report FULL RESULT: EXAM: THORACIC SPINE RADIOGRAPHY EXAM DATE: 09/20/2019 04:06 PM. CLINICAL HISTORY: THORACIC BACK PAIN. COMPARISON: None. TECHNIQUE: 2 views. FINDINGS: Alignment: There is mild S shaped scoliotic curvature of the thoracic spine. Bones: No fractures or bone lesions. Disks: Normal. Disk heights are maintained. Soft Tissues: Normal. The visualized lungs and cardiomediastinal silhouette are normal. IMPRESSION: No evidence of fracture or dislocation. RADIA
== END 2019-09-20 15:31 | disposition home or self-care (01) ==
LOC: DI.N 15:30
PROVIDERS: ATTEND Family Medicine
DX: M54.6 Pain in thoracic spine (principal)
CPT/HCPCS: 72072

== ENCOUNTER 2021-04-11 12:25 | Outpatient (CLI) | payer MEDICAID ==
[2021-04-11 17:58] LABS: BASOPHILS # (AUTO) 0.1 10^3/uL (0.0-0.1); BASOPHILS % (AUTO) 0.6 %; EOSINOPHILS # (AUTO) 0.3 10^3/uL (0.0-0.7); EOSINOPHILS % (AUTO) 3.4 %; HCT - HEMATOCRIT 44.4 % (42.0-52.0); HGB - HEMOGLOBIN 14.9 g/dL (14.0-18.0); LYMPHOCYTES # (AUTO) 3.3 10^3/uL (1.5-3.5); LYMPHOCYTES % (AUTO) 40.8 %; MEAN CORPUSCULAR HEMOGLOBIN 29.4 pg (27.0-31.0); MEAN CORPUSCULAR HGB CONC 33.6 g/dL (32.0-36.0); MEAN CORPUSCULAR VOLUME 87.6 fL (80.0-94.0); MEAN PLATELET VOLUME 8.9 fL (7.4-11.4); MONOCYTES # (AUTO) 0.6 10^3/uL (0.0-1.0); MONOCYTES % (AUTO) 6.9 %; NEUTROPHILS # (AUTO) 3.9 10^3/uL (1.5-6.6); NEUTROPHILS % (AUTO) 47.9 %; PLT - PLATELET COUNT 175 10^3/uL (130-450); RED BLOOD COUNT 5.07 10^6/uL (4.70-6.10); RED CELL DISTRIBUTION WIDTH 12.3 % (12.0-15.0); WHITE BLOOD COUNT 8.1 x10^3/uL (4.8-10.8)
[2021-04-11 18:15] LABS: ALBUMIN 4.6 g/dL (3.2-5.5); ALBUMIN/GLOBULIN RATIO 1.9 (1.0-2.2); BILIRUBIN,TOTAL 0.9 mg/dL (0.2-1.0); CALCIUM 9.3 mg/dL (8.5-10.3); CREATININE 1.1 mg/dL (0.6-1.2); POTASSIUM 4.2 mmol/L (3.5-5.0)
== END 2021-04-11 23:59 | disposition home or self-care (01) ==
LOC: LAB.WCP 12:25
PROVIDERS: ATTEND Nurse Practitioner
DX: R10.9 Unspecified abdominal pain (principal)
CPT/HCPCS: 36415; 80053; 82150; 83690; 85025

== ENCOUNTER 2021-12-23 08:40 | Outpatient (CLI) | payer MEDICAID ==
[2021-12-23 08:58] LABS: BASOPHILS % (AUTO) 0.3 %; EOSINOPHILS # (AUTO) 0.1 10^3/uL (0.0-0.7); EOSINOPHILS % (AUTO) 2.3 %; HCT - HEMATOCRIT 48.6 % (42.0-52.0); HGB - HEMOGLOBIN 16.5 g/dL (14.0-18.0); LYMPHOCYTES # (AUTO) 2.6 10^3/uL (1.5-3.5); LYMPHOCYTES % (AUTO) 41.2 %; MEAN CORPUSCULAR HEMOGLOBIN 29.4 pg (27.0-31.0); MEAN CORPUSCULAR VOLUME 86.6 fL (80.0-94.0); MEAN PLATELET VOLUME 8.3 fL (7.4-11.4); MONOCYTES # (AUTO) 0.4 10^3/uL (0.0-1.0); MONOCYTES % (AUTO) 6.9 %; NEUTROPHILS # (AUTO) 3.1 10^3/uL (1.5-6.6); PLT - PLATELET COUNT 142 10^3/uL (130-450); RED BLOOD COUNT 5.61 10^6/uL (4.70-6.10); RED CELL DISTRIBUTION WIDTH 12.3 % (12.0-15.0); WHITE BLOOD COUNT 6.2 x10^3/uL (4.8-10.8)
[2021-12-23 09:01] LABS: VBG PH 7.298 (7.31-7.41)
[2021-12-23 09:02] LABS: CALCIUM, IONIZED 1.2 mmol/L (1.15-1.33)
[2021-12-23 09:11] LABS: ALBUMIN 4.7 g/dL (3.2-5.5); BILIRUBIN,TOTAL 0.5 mg/dL (0.2-1.0); CALCIUM 9.6 mg/dL (8.5-10.3); CREATININE 1.1 mg/dL (0.6-1.2); POTASSIUM 4.6 mmol/L (3.5-5.0); TOTAL PROTEIN 7.1 g/dL (6.7-8.2)
== END 2021-12-23 08:41 | disposition home or self-care (01) ==
LOC: LAB 08:40
PROVIDERS: ATTEND Psychiatry & Neurology Neurology
DX: G40.309 Generalized idiopathic epilepsy and epileptic syndromes, not intractable, without status epilepticus (principal); Z51.81 Encounter for therapeutic drug level monitoring; E55.9 Vitamin D deficiency, unspecified
CPT/HCPCS: 36415; 80053; 80175; 82330; 85025

== ENCOUNTER 2022-12-18 08:54 | Emergency (ER) | payer MEDICAID ==
[2022-12-18 09:04] VITALS: BP 136/81
[2022-12-18] MEDS ORDERED: DEXAMETHASONE 10 MG/ML VIAL PO STA (09:40)
[2022-12-18] MEDS ORDERED: CHERRY SYRUP 10 ML UDC PO ONE (09:40)
--- NOTE | 2022-12-18 09:43 | ED Physician Documentation ---
PD HPI URI - Stated complaint Stated Complaint: COUGH/CHEST PX - Chief complaint Chief Complaint: Resp - History obtained from History obtained from: Patient - History of Present Illness Timing - onset: How many days ago (3) Timing duration: Days (3) Timing details: Gradual onset, Still present Associated symptoms: Nasal congestion, Productive cough, Chest pain. No: Fever, Chills, Sinus pain, Sore throat Contributing factors: Sick contact (boss sick last week with URI) Improves by: Rest Similar symptoms before: Diagnosis (bronchitis) Recently seen: Not recently seen - Additional information Additional information: Jose Florez is a 32-year-old male with a dust mite allergy who does use an inhaler occasionally and he cannot find his inhaler. He was exposed to his boss who had a rough respiratory infection about 10 days ago and now over the past 3 days he has developed a cough productive of yellow phlegm this morning and some pain in his anterior chest with coughing. He feels that he can get a decent breath but it hurts. Review of Systems Constitutional: denies: Fever Eyes: denies: Decreased vision Ears: denies: Loss of hearing, Ear pain, Tinnitus/ringing Nose: reports: Congestion Throat: denies: Sore throat Cardiac: reports: Chest pain / pressure. denies: Palpitations, Pedal edema, Calf pain Respiratory: reports: Cough. denies: Dyspnea, Hemoptysis, Wheezing GI: denies: Vomiting, Diarrhea PD PAST MEDICAL HISTORY - Past Medical History Past Medical History: Yes Cardiovascular: Murmur Respiratory: None Neuro: None Endocrine/Autoimmune: None GI: None : None HEENT: None Psych: Bipolar disorder, ADD/ADHD Musculoskeletal: None Derm: None - Past Surgical History Past Surgical History: Yes HEENT: Myringotomy (tubes) - Present Medications Home Medications: Ambulatory Orders Medication Instructions Recorded Confirmed Montelukast [Singulair] 10 mg PO DAILY 07/14/13 12/18/22 risperiDONE [Risperidone] 2 mg PO BID 07/14/13 12/18/22 Guanfacine HCl 2 tab PO DAILY 11/17/15 12/18/22 Fluticasone [Flonase] 2 spray IH Q6HR PRN 12/06/15 12/18/22 lamoTRIgine [Lamictal Odt] 200 mg PO BID 12/06/16 12/18/22 Prazosin [Minipress] 1 mg PO QPM 08/05/18 12/18/22 Propranolol [Inderal] 40 mg PO BID 08/05/18 12/18/22 Albuterol Sulf [Ventolin Hfa 1 - 2 puffs INH Q4HR PRN #1 each 12/18/22 Inhaler] - Allergies Allergies/Adverse Reactions: Allergies Allergy/AdvReac Type Severity Reaction Status Date / Time dust mites Allergy Unknown Uncoded 12/18/22 09:04 anesthesia AdvReac Nausea Uncoded 12/18/22 09:04 - Social History Does the pt smoke?: Yes Smoking Status: Current every day smoker Does the pt drink ETOH?: No Does the pt have substance abuse?: No - Immunizations Immunizations are current?: No Immunizations: Other immun current - POLST Patient has POLST: No PD ED PE NORMAL - Vitals Vital signs reviewed: Yes (Hypertensive mild) - General General: Alert and oriented X 3, No acute distress, Well developed/nourished - HEENT HEENT: Atraumatic, PERRL, EOMI, Pharynx benign, Other (Cerumen impaction bilaterally no sinus point tenderness) - Neck Neck: Supple, no meningeal sign, No bony TTP - Cardiac Cardiac: RRR, No murmur - Respiratory Respiratory: No respiratory distress, Clear bilaterally, Other (Chest wall tenderness to the parasternal area bilaterally) - Abdomen Abdomen: Soft, Non tender - Back Back: No CVA TTP, No spinal TTP - Derm Derm: Normal color, Warm and dry, No rash - Extremities Extremities: No deformity, No edema - Neuro Neuro: Alert and oriented X 3, solicitor patent 2-12 intact, No motor deficit, No sensory deficit, Normal speech Eye Opening: Spontaneous Motor: Obeys Commands Verbal: Oriented GCS Score: 15 - Psych Psych: Normal mood, Normal affect Results - Vitals Vitals: Vital Signs - 24 hr 12/18/22 09:01 Temperature 37.0 C Heart Rate 63 Respiratory 20 Rate Blood Pressure 136/81 H O2 Saturation 100 Oxygen O2 Source Room air PD Medical Decision Making - ED course Complexity details: considered differential, d/w patient ED course: 32-year-old male with a URI has diminished breath sounds on exam but with clear lungs and anterior chest pain consistent with costochondritis. Just today he is coughing up some yellow phlegm I do not believe there is evidence for pneumonia and I did not find significant inflammation in the pharynx or sinuses. Unable to examine the ears. I have administered the patient 10 mg of dexamethasone for his costochondritis and reactive airway and we will prescribe an inhaler and instructions on viral URI he does have a primary care doctor he can follow-up with. Departure - Departure Disposition: 01 Home, Self Care Clinical Impression: Costochondritis, acute Upper respiratory tract infection Qualifiers: URI type: unspecified viral URI Qualified Code(s): J06.9 - Acute upper respiratory infection, unspecified Condition: Stable Instructions: ED Bronchitis Asthmatic, ED Chest Pain Costochondritis Follow-Up: Paloma Ace PA-C [Primary Care Provider] - Prescriptions: Albuterol Sulf [Ventolin Hfa Inhaler] 1 - 2 puffs INH Q4HR PRN #1 each PRN Reason: Shortness Of Air/Wheezing Comments: Jose today it looks like you have a viral upper respiratory tract infection and we have given you an anti-inflammatory medication that should help with your chest pain and your ability to breathe. Use your inhaler as needed. I have E scribed this to the [facility] in [place]. If you have persistence of symptoms or develop fever and worsening phlegm follow-up with CESARIO Ace or here for reevaluation.
== END 2022-12-18 10:06 | disposition home or self-care (01) ==
LOC: ED 08:54
DX: M94.0 Chondrocostal junction syndrome [Tietze] (principal); J06.9 Acute upper respiratory infection, unspecified; F17.200 Nicotine dependence, unspecified, uncomplicated
CPT/HCPCS: 99282; 99283; A9270

== ENCOUNTER 2023-12-18 17:06 | Emergency (ER) | payer MEDICAID, OTHER ==
--- NOTE | 2023-12-18 17:19 | ED Physician Documentation ---
PD HPI WOUND RECHECK - Stated complaint Stated Complaint: R FINGER INJ - Chief complaint Chief Complaint: Wound - Histroy obtained from History obtained from: Patient - Additional information Additional information: He has had a increasingly painful and discolored lesion on the dorsum of the right second finger for the last few days. No fevers. No history of MRSA. PD PAST MEDICAL HISTORY - Past Medical History Cardiovascular: Murmur Respiratory: None Neuro: None Endocrine/Autoimmune: None GI: None : None HEENT: None Psych: Bipolar disorder, ADD/ADHD Musculoskeletal: None Derm: None - Past Surgical History Past Surgical History: Yes HEENT: Myringotomy (tubes) - Present Medications Home Medications: Ambulatory Orders Medication Instructions Recorded Confirmed Montelukast [Singulair] 10 mg PO DAILY 07/14/13 12/18/22 risperiDONE [Risperidone] 2 mg PO BID 07/14/13 12/18/22 Guanfacine HCl 2 tab PO DAILY 11/17/15 12/18/22 Fluticasone [Flonase] 2 spray IH Q6HR PRN 12/06/15 12/18/22 lamoTRIgine [Lamictal Odt] 200 mg PO BID 12/06/16 12/18/22 Prazosin [Minipress] 1 mg PO QPM 08/05/18 12/18/22 Propranolol [Inderal] 40 mg PO BID 08/05/18 12/18/22 Albuterol Sulf [Ventolin Hfa 1 - 2 puffs INH Q4HR PRN #1 each 12/18/22 Inhaler] HYDROcod/ACETAM 5/325 [Dyer 5/325] 1 - 2 tab PO Q6H PRN #10 tablet 12/18/23 Sulfamethox/Trimeth 800/160 1 each PO BID #14 tablet 12/18/23 [Bactrim Ds 800/160] cephALEXin [Keflex] 500 mg PO Q6H #28 cap 12/18/23 - Allergies Allergies/Adverse Reactions: Allergies Allergy/AdvReac Type Severity Reaction Status Date / Time dust mites Allergy Unknown Uncoded 12/18/23 17:09 anesthesia AdvReac Nausea Uncoded 12/18/23 17:09 - Social History Does the pt smoke?: Yes Smoking Status: Current every day smoker Does the pt drink ETOH?: No Does the pt have substance abuse?: No - Immunizations Immunizations are current?: No Immunizations: Other immun current - POLST Patient has POLST: No PD ED PE NORMAL - Vitals Vital signs reviewed: Yes - General General: Alert and oriented X 3, No acute distress - Extremities Extremities: Other (There is a discolored ulcer with swelling of the second digit on the right hand. The ulcer is focused over the dorsum of the middle part of the proximal phalanx.) - Neuro Neuro: Alert and oriented X 3, Normal speech Results - Vitals Vitals: Vital Signs - 24 hr 12/18/23 17:09 Temperature 36.7 C Heart Rate 86 Respiratory 16 Rate Blood Pressure 126/85 H O2 Saturation 99 Oxygen O2 Source Room air Procedures - Abscess I&D (location) R 2nd finger Preparation: Confirmed with ultrasound, Lidocaine 1% Incision: Incised with scalpel, Purulent drainage, Loculations broken, Packed, Culture obtained Other: Pt tolerated well, Antibiotic prescribed Departure - Departure Disposition: 01 Home, Self Care Clinical Impression: Abscess Condition: Good Record reviewed to determine appropriate education?: Yes Instructions: ED Abscess IandD Prescriptions: Sulfamethox/Trimeth 800/160 [Bactrim Ds 800/160] 1 each PO BID #14 tablet cephALEXin [Keflex] 500 mg PO Q6H #28 cap HYDROcod/ACETAM 5/325 [Dyer 5/325] 1 - 2 tab PO Q6H PRN #10 tablet PRN Reason: Pain Comments: I sent your prescriptions electronically to the [facility] in [place]. You have an abscess of the right second finger. I like you to return on Thursday for wound check and culture review. We will take the packing out then. Return sooner if worse. There is a wound culture pending. If you want to take off the over dressing you can but try to leave the packing in. It is okay to get that wet and just replace it with a Band-Aid. If you would prefer to leave the current dressing on until Thursday, that is okay as well. Forms: PCP List
[2023-12-18] MEDS: cephALEXin 250 MG CAPSULE PO STA (17:26)
[2023-12-18] MEDS: SULFAMETH/TRIMETH DS 800/160 MG TABLET PO STA (17:26)
[2023-12-18] MEDS: lidocaine 1% 20 ML MDV SUBQ ONE (17:29)
[2023-12-18] MEDS: HYDROcod/ACETAM 5/325 MG TABLET PO STA (18:24)
[2023-12-18 18:30] VITALS: BP 125/79; O2SAT 98
--- NOTE | 2023-12-21 11:14 | ED Physician Documentation ---
ED Addendum - Addendum Addendum: 12/21/23 11:14 Culture reviewed. He I called the patient and he says he is doing well. His wound is improving with no purulence and not much pain. Given the culture which is resistant to Bactrim I called in a prescription for doxycycline 100 mg p.o. 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
== END 2023-12-18 18:30 | disposition home or self-care (01) ==
LOC: ED 17:06
DX: L02.511 Cutaneous abscess of right hand (principal); F17.200 Nicotine dependence, unspecified, uncomplicated; Z79.899 Other long term (current) drug therapy
CPT/HCPCS: 26010; 87070; 87181; 87205; 99283; A9270

== ENCOUNTER 2023-12-28 18:44 | Outpatient (CLI) | payer MEDICAID | END 2023-12-28 23:59 | disposition left against medical advice (07) | LOC: EMS 18:44 | DX: R56.9 Unspecified convulsions (principal) ==